=== PATIENT | male | born 1930 | race Caucasian/White ===

== ENCOUNTER 2018-05-06 09:52 | Outpatient (RCR) | payer MEDICARE, BC | END 2018-05-20 | LOC: M PT 09:52 | DX: Z86.73 Personal history of transient ischemic attack (TIA), and cerebral infarction without residual deficits (principal); Z51.89 Encounter for other specified aftercare | CPT/HCPCS: 97110 ==

== ENCOUNTER 2018-05-24 10:15 | Outpatient (RCR) | payer MEDICARE, BC | END 2018-06-19 | LOC: M PT 10:15 | DX: Z86.73 Personal history of transient ischemic attack (TIA), and cerebral infarction without residual deficits (principal) | CPT/HCPCS: 97110 ==

== ENCOUNTER 2018-06-20 10:47 | Outpatient (RCR) | payer MEDICARE, BC | END 2018-07-20 | LOC: M PT 06-24 10:11 | DX: Z86.73 Personal history of transient ischemic attack (TIA), and cerebral infarction without residual deficits (principal) | CPT/HCPCS: 97110 ==

== ENCOUNTER 2018-07-22 10:05 | Outpatient (RCR) | payer MEDICARE, BC | END 2018-08-19 | LOC: M PT 10:05 | DX: Z86.73 Personal history of transient ischemic attack (TIA), and cerebral infarction without residual deficits (principal) | CPT/HCPCS: 97110 ==